=== PATIENT | female | born 1950 | race Asian ===

== ENCOUNTER 2022-12-22 15:33 | Inpatient (IN) | payer OTHER | END 2023-01-01 12:10 | disposition still patient (30) | LOC: PAVB 15:33 | PROVIDERS: ADMIT Family Medicine; ATTEND Family Medicine ==

== ENCOUNTER 2022-12-23 05:55 | Outpatient (CLI) | payer OTHER ==
[2022-12-23 08:43] LABS: PLATELET COUNT 208 K/uL (152-353)
== END 2022-12-23 20:52 | disposition home or self-care (01) ==
LOC: LAB 05:55
PROVIDERS: ATTEND Family Medicine
DX: I10 Essential (primary) hypertension (principal); E78.00 Pure hypercholesterolemia, unspecified; E11.9 Type 2 diabetes mellitus without complications
CPT/HCPCS: 80053; 80061; 83036; 85027; 87081

== ENCOUNTER 2022-12-29 15:59 | Outpatient (CLI) | payer OTHER | END 2022-12-29 19:29 | disposition home or self-care (01) | LOC: RAD 15:59 | PROVIDERS: ATTEND Family Medicine | DX: I11.0 Hypertensive heart disease with heart failure (principal); I50.9 Heart failure, unspecified; R60.1 Generalized edema; R94.31 Abnormal electrocardiogram [ECG] [EKG]; I50.33 Acute on chronic diastolic (congestive) heart failure ==

== ENCOUNTER 2023-01-01 12:17 | Inpatient (IN) | payer OTHER ==
[2023-01-20 09:59] LABS: PLATELET COUNT 200 K/uL (152-353)
[2023-01-20 10:08] LABS: POTASSIUM 5.6 mmol/L (3.6-5.2)
== END 2023-01-31 14:06 | disposition still patient (30) ==
LOC: PAVB 12:17
PROVIDERS: ADMIT Family Medicine; ATTEND Family Medicine
CPT/HCPCS: 80053; 81000; 85027

== ENCOUNTER 2023-01-24 10:19 | Outpatient (CLI) | payer OTHER ==
[~2023-01-24] VITALS: Ht 152.4 cm; Wt 68.0 kg
[2023-01-24 10:25] VITALS: BP 80/47; TEMP 98.2
[2023-01-24 12:33] VITALS: BP 130/62; TEMP 98
== END 2023-01-24 18:58 | disposition home or self-care (01) ==
LOC: INF 10:19
PROVIDERS: ATTEND Family Medicine
DX: E87.8 Other disorders of electrolyte and fluid balance, not elsewhere classified (principal); E86.0 Dehydration
CPT/HCPCS: 96360

== ENCOUNTER 2023-01-25 05:52 | Outpatient (CLI) | payer OTHER ==
[2023-01-25 06:39] LABS: POTASSIUM 4.5 mmol/L (3.6-5.2)
== END 2023-01-25 18:54 | disposition home or self-care (01) ==
LOC: LAB 05:52
PROVIDERS: ATTEND Family Medicine
DX: E86.0 Dehydration (principal)
CPT/HCPCS: 80048

== ENCOUNTER 2023-01-31 14:20 | Inpatient (IN) | payer OTHER ==
[2023-02-16] MEDS ORDERED: LIPITOR20 MG PO (19:46)
[2023-02-16] MEDS ORDERED: DONEPEZIL HYDRO10 MG PO (19:49)
[2023-02-16] MEDS ORDERED: SITA50TA2 PO (19:50)
[2023-02-16] MEDS ORDERED: LANTUS SOL100 UNIT/M SC (19:50)
[2023-02-16] MEDS ORDERED: ZESTRIL40 MG PO (19:51)
[2023-02-16] MEDS ORDERED: MELATONIN10 M3 SL (19:53)
[2023-02-16] MEDS ORDERED: MIRTAZAPINE7.5 MG PO (19:54)
[2023-02-16] MEDS ORDERED: SPIRONOLACT25 MG PO (19:55)
[2023-02-16] MEDS ORDERED: CARV25TA PO (19:55)
[2023-02-16] MEDS ORDERED: FUROSEMIDE20 MG PO (19:56)
[2023-03-02] MEDS ORDERED: ATOR20TA2 PO (10:22)
[2023-03-02] MEDS ORDERED: Voltaren GEL 1% 100G TOP (10:22)
[2023-03-02] MEDS ORDERED: COREG 25 MG PO (10:22)
[2023-03-02] MEDS ORDERED: CHOL100034 PO (10:22)
[2023-03-02] MEDS ORDERED: FURO20TA67 PO (10:22)
[2023-03-02] MEDS ORDERED: INSU100P SC (10:23)
[2023-03-02] MEDS ORDERED: LISI20TA11 PO (10:24)
[2023-03-02] MEDS ORDERED: INSU-1996 SC (10:24)
[2023-03-02] MEDS ORDERED: SPIR50TA8 PO (10:25)
[2023-03-02] MEDS ORDERED: SITA50TA2 PO (10:25)
== END 2023-03-03 11:30 | disposition still patient (30) ==
LOC: PAVB 14:20
PROVIDERS: ADMIT Family Medicine; ATTEND Family Medicine

== ENCOUNTER 2023-02-16 07:27 | Outpatient (CLI) | payer OTHER ==
[2023-02-16] MEDS ORDERED: LIPITOR20 MG PO (19:46)
[2023-02-16] MEDS ORDERED: DONEPEZIL HYDRO10 MG PO (19:49)
[2023-02-16] MEDS ORDERED: SITA50TA2 PO (19:50)
[2023-02-16] MEDS ORDERED: LANTUS SOL100 UNIT/M SC (19:50)
[2023-02-16] MEDS ORDERED: ZESTRIL40 MG PO (19:51)
[2023-02-16] MEDS ORDERED: MELATONIN10 M3 SL (19:53)
[2023-02-16] MEDS ORDERED: MIRTAZAPINE7.5 MG PO (19:54)
[2023-02-16] MEDS ORDERED: SPIRONOLACT25 MG PO (19:55)
[2023-02-16] MEDS ORDERED: CARV25TA PO (19:55)
[2023-02-16] MEDS ORDERED: FUROSEMIDE20 MG PO (19:56)
== END 2023-02-16 20:33 | disposition home or self-care (01) ==
LOC: LAB 07:27
PROVIDERS: ATTEND Family Medicine
DX: F03.90 Unspecified dementia, unspecified severity, without behavioral disturbance, psychotic disturbance, mood disturbance, and anxiety (principal)
CPT/HCPCS: 81000

== ENCOUNTER 2023-02-16 15:18 | Emergency (ER) | payer OTHER ==
[~2023-02-16] VITALS: Ht 162.6 cm; Wt 78.0 kg
[2023-02-16 15:18] VITALS: BP 153/75; TEMP 98.7
[2023-02-16 15:45] LABS: PLATELET COUNT 203 K/uL (152-353)
[2023-02-16 15:56] LABS: POTASSIUM 4.7 mmol/L (3.6-5.2)
[2023-02-16] MEDS ORDERED: LIPITOR20 MG PO (19:46)
[2023-02-16] MEDS ORDERED: DONEPEZIL HYDRO10 MG PO (19:49)
[2023-02-16] MEDS ORDERED: LANTUS SOL100 UNIT/M SC (19:50)
[2023-02-16] MEDS ORDERED: SITA50TA2 PO (19:50)
[2023-02-16] MEDS ORDERED: ZESTRIL40 MG PO (19:51)
[2023-02-16] MEDS ORDERED: MELATONIN10 M3 SL (19:53)
[2023-02-16] MEDS ORDERED: MIRTAZAPINE7.5 MG PO (19:54)
[2023-02-16] MEDS ORDERED: SPIRONOLACT25 MG PO (19:55)
[2023-02-16] MEDS ORDERED: CARV25TA PO (19:55)
[2023-02-16] MEDS ORDERED: FUROSEMIDE20 MG PO (19:56)
== END 2023-02-16 16:34 | disposition still patient (30) ==
LOC: ED 15:18
PROVIDERS: Internal Medicine
DX: R45.6 Violent behavior (principal)
CPT/HCPCS: 80053; 85027; 87635; 93005; 99283; U0003

== ENCOUNTER 2023-03-03 11:36 | Inpatient (IN) | payer OTHER ==
[~2023-03-03 11:36] MED LIST: ATOR20TA2 PO; CARV25TA PO; CHOL100034 PO; COREG 25 MG PO; DONEPEZIL HYDRO10 MG PO; FURO20TA67 PO; FUROSEMIDE20 MG PO; INSU-1996 SC; INSU100P SC; LANTUS SOL100 UNIT/M SC; LIPITOR20 MG PO; LISI20TA11 PO; MELATONIN10 M2 PO; MIRTAZAPINE7.5 MG PO; SITA50TA2 PO; SPIR50TA8 PO; SPIRONOLACT25 MG PO; Voltaren GEL 1% 100G TOP; ZESTRIL40 MG PO
[2023-03-17] MEDS ORDERED: LORA2INJ21 IM (17:14)
[2023-03-22] MEDS ORDERED: AMLODIPINE BESYLATE PO (17:03)
[2023-03-22] MEDS ORDERED: VAZALORE81 MG PO (17:04)
[2023-03-22] MEDS ORDERED: LANTUS100 UNIT/M SC (17:06)
[2023-03-22] MEDS ORDERED: MAGIC CUP PO (17:11)
[2023-03-22] MEDS ORDERED: VITAMIN D325 MCG PO (17:13)
[2023-03-22] MEDS ORDERED: MILK OF MA400 MG/5 M PO (17:14)
[2023-03-22] MEDS ORDERED: DICL1GEL2 TOP (17:15)
== END 2023-04-02 17:37 | disposition still patient (30) ==
LOC: PAVB 11:36
PROVIDERS: ADMIT Family Medicine; ATTEND Family Medicine